=== PATIENT | male | born 1950 | race Caucasian/White ===

== ENCOUNTER 2020-06-21 02:57 | Observation (INO) ==
[2020-06-21] MEDS ORDERED: Naloxone 0.4 MG/ML INJ IVP PRN (03:51)
[2020-06-21] MEDS ORDERED: Ondansetron 4 MG/2 ML VIAL IVP PRN (03:51)
[2020-06-21] MEDS ORDERED: *HR* Dextrose 50 % in Water (Vial) 50 ML VIAL IVP PRN (03:53)
[2020-06-21] MEDS ORDERED: Dextrose Gel 15 GM/37.5 ML TUBE PO PRN ×2 (03:53)
[2020-06-21] MEDS ORDERED: D5% in Water 1,000 ML IVC PRN (03:53)
[2020-06-21] MEDS ORDERED: 0.9 % Sodium Chloride 1,000 ML IVC SCH (04:00)
[2020-06-21 04:55] LABS: BUN/Creatinine Ratio 29 (6-26); Blood Urea Nitrogen 26 mg/dL (8-23); Calcium 7.9 mg/dL (8.6-10.3); Carbon Dioxide 18 mEq/L (23-29); Chloride 109 mEq/L (98-107); Creatine Kinase 213 Units/L (30-223); Glucose 266 mg/dL (70-105); Osmolality,Calculated 298 (280-300); Potassium 3.7 mEq/L (3.5-5.1); Sodium 137 mEq/L (136-145); eGFR For African Americans > 60 (> 60); eGFR For Non-African Americans > 60 (> 60)
[2020-06-21] MEDS ORDERED: Benzonatate 100 MG CAPSULE PO PRN (04:58)
[2020-06-21] MEDS ORDERED: *HR* Heparin 5,000 UNIT/ML VIAL SQ SCH (06:00)
[2020-06-21] MEDS: Insulin LISPRO 300 UNITS/3 ML VIAL SUBQ SCH ×2 (07:53→12:21)
[2020-06-21 10:35] VITALS: BP 84/56
[2020-06-21] MEDS ORDERED: Insulin LISPRO 300 UNITS/3 ML VIAL SUBQ SCH (21:00)
[2020-06-22 09:45] LABS: Estimated Average Glucose 197 mg/dl; Hemoglobin A1C 8.5 %
== END 2020-06-21 13:43 | disposition home or self-care (01) ==
LOC: 2NENU → SUATTDRO 02:57
PROVIDERS: ADMIT Internal Medicine; ATTEND Internal Medicine